=== PATIENT | male | born 1995 | race Caucasian/White ===

== ENCOUNTER 2018-01-08 13:06 | Day surgery (SDC) | payer MEDICAID ==
[2018-01-08 14:30] LABS: BASO # 0.1 K/uL (0.0-0.2); EOS # 0.1 K/uL (0.0-0.7); EOS % 1.4 % (0.0-4.0); HEMOGLOBIN 16.5 g/dL (12.0-18.0); LYMPH # 2.4 K/uL (1.0-4.3); LYMPH % 38.2 % (20.0-40.0); MEAN CELL VOLUME 89.7 fL (80.0-94.0); MEAN CORPUSCULAR HEMOGLOBIN 30.9 pg (27.0-31.0); MEAN CORPUSCULAR HGB CONC 34.4 g/dL (33.0-37.0); MEAN PLATELET VOLUME 7.7 fL (7.2-11.7); MONO # 0.5 K/uL (0.0-0.8); MONO % 7.5 % (0.0-10.0); NEUT # 3.3 K/uL (1.8-7.0); NEUT % 51.9 % (50.0-75.0); NRBC % 0.1 % (0.0-2.0); RBC 5.35 Mil/uL (4.40-5.90); WHITE BLOOD COUNT 6.3 K/uL (4.8-10.8)
[2018-01-08 14:32] LABS: URINE BILIRUBIN NEGATIVE (NEGATIVE); URINE BLOOD NEGATIVE (NEGATIVE); URINE CLARITY Clear (Clear); URINE COLOR Yellow (YELLOW); URINE GLUCOSE (UA) NORMAL (Normal); URINE LEUKOCYTE ESTERASE NEG Leu/uL (Negative); URINE PROTEIN NEGATIVE (NEGATIVE); URINE UROBILINOGEN NORMAL mg/dL (0.2-1.0)
[2018-01-08 14:43] LABS: ALB/GLOB RATIO 1.4 (1.0-2.1); ALBUMIN 4.6 g/dL (3.5-5.0); ALT/SGPT 29 U/L (21-72); AST/SGOT 38 U/L (17-59); BLOOD UREA NITROGEN 13 mg/dL (9-20); CALCIUM 9.8 mg/dl (8.6-10.4); GFR NON-AFRICAN AMERICAN > 60; LIPASE 490 U/L (23-300)
[2018-01-08] MEDS ORDERED: Iodixanol 320 MG/ML 100 ML BOTTLE IV ONE (15:00)
--- NOTE | 2018-01-08 15:23 | C.PDOC ---
History Of Present Illness 22 y/o male presents to the ER complaining of right testicular pain which began when he woke up in the morning today. Patient states that he was not sexually active last night or in the morning. Patient denies having history of testicular trauma and STDs. Time Seen by Provider: 01/08/18 13:43 Chief Complaint (Nursing): Male Genitourinary History Per: Patient History/Exam Limitations: no limitations Onset/Duration Of Symptoms: Hrs Current Symptoms Are (Timing): Still Present Severity: Moderate Past Medical History Reviewed: Historical Data, Nursing Documentation, Vital Signs Vital Signs: Last Vital Signs Temp 99 F 01/08/18 13:27 Pulse 65 01/08/18 13:27 Resp 18 01/08/18 13:27 BP 116/77 01/08/18 13:27 Pulse Ox 97 01/08/18 13:27 - Medical History PMH: No Chronic Diseases Other Surgeries: Hx of surgeries Family History: States: No Known Family Hx - Social History Hx Alcohol Use: No Hx Substance Use: No - Immunization History Hx Tetanus Toxoid Vaccination: No Hx Influenza Vaccination: No Hx Pneumococcal Vaccination: No Review Of Systems Except As Marked, All Systems Reviewed And Found Negative. Constitutional: Negative for: Fever, Chills Genitourinary: Positive for: Other (right testicular pain) Physical Exam - Physical Exam Appears: No Acute Distress Skin: Normal Color, Warm, Dry Head: Atraumatic, Normacephalic Eye(s): bilateral: Normal Inspection Nose: Normal Oral Mucosa: Moist Neck: Supple Chest: Symmetrical Cardiovascular: Rhythm Regular Respiratory: Normal Breath Sounds, No Rales, No Rhonchi, No Wheezing Gastrointestinal/Abdominal: Normal Exam, Soft, No Tenderness, No Guarding, No Rebound Male Genital: Other (right testicle: elevated, ? rotated, tender to palpation, no scrotal inflammation, no hernia) Neurological/Psych: Oriented x3, Normal Speech ED Course And Treatment - Laboratory Results Result Diagrams: 01/08/18 14:25 01/08/18 14:25 Lab Interpretation: Abnormal (lipase 490 of ? etiology, UA neg., GC/Chlamydia screen sent (f/u)) O2 Sat by Pulse Oximetry: 97 (RA) Pulse Ox Interpretation: Normal - Other Rad Scrotal US X-Ray: Read By Radiologist (+ R testicular torsion with decrease flow to R testicle) - CT Scan/US CT Abd Pelvis Other Rad Studies (CT/US): Radiology Report Reviewed (fatty liver infiltration, no pancreatitis, + constipation) Reevaluation Time: 15:22 Reassessment Condition: Improved - Physician Consult Information Outcome Of Conversation: 1500: US tech called to notify of R testicular torsion. 1510: d/w Dr. Dewey- Urology Cooking Instructor- will come to immediatly, asks to alert surgical team and admit to Hospitalists, planning for same-day d/c. Medical Decision Making Medical Decision Making: sponteneous R testicular torsion lipase 490 of ? significance CT Abd/pelvis pending. Disposition Doctor Will See Patient In The: Hospital - Disposition Disposition: HOSPITALIZED Disposition Time: 15:24 Condition: GOOD - Clinical Impression Clinical Impression: Right testicular torsion - Scribe Statement The provider has reviewed the documentation as recorded by the Scribe Abelino Giles Provider Attestation: All medical record entries made by the Scribe were at my direction and personally dictated by me. I have reviewed the chart and agree that the record accurately reflects my personal performance of the history, physical exam, medical decision making, and the department course for this patient. I have also personally directed, reviewed, and agree with the discharge instructions and disposition.
--- NOTE | 2018-01-08 15:33 | US ---
Date of service: 01/08/2018 HISTORY: 1 day R testicle abn ? rotate vs epididimitis TECHNIQUE: Realtime sonography through the scrotum with color and doppler flow. COMPARISON: None Available. FINDINGS: RIGHT TESTICLE: Measures 5.3 x 3.1 x 2.9 cm. No Doppler flow seen within the right testicle suggesting torsion. The the radiology is. RIGHT EPIDIDYMIS: Epididymal head measures 2.5 x 2.0 x 2.1 cm. No obvious Doppler flow is present. LEFT TESTICLE: Measures 5.1 x 2.0 x 2.6 cm. Normal echotexture and flow. LEFT EPIDIDYMIS: Epididymal head measures 1.1 x 0.9 x 1.3 cm. Grossly unremarkable appearance with normal flow. HYDROCELE: Right-sided hydrocele VARICOCELE: None. OTHER FINDINGS: None. IMPRESSION: Findings consistent with torsion right testicle.. No Doppler flow seen within the right epididymis. There is a right-sided hydrocele. Findings discussed with Dr. León at 3:30 p.m. with written down and read back verification.
--- NOTE | 2018-01-08 15:44 | CT ---
Date of service: 01/08/2018 PROCEDURE: CT Abdomen and Pelvis with contrast HISTORY: incidental elev lipase, R testicular mass, ? mets COMPARISON: None. TECHNIQUE: Contrast dose: 100 cc Visipaque 320 Radiation dose: Total exam DLP = mGy-cm. This CT exam was performed using one or more of the following dose reduction techniques: Automated exposure control, adjustment of the mA and/or kV according to patient size, and/or use of iterative reconstruction technique. FINDINGS: LOWER THORAX: Heart size within range of normal. No significant pericardial effusion. Tiny hiatal hernia. No infiltrate effusion or basilar pneumothorax. LIVER: Liver is borderline enlarged measuring nearly 19 cm in CC dimension. Moderate fatty hepatic infiltration.. No obvious hepatic mass or collection.. Portal and splenic veins are opacified. GALLBLADDER AND BILE DUCTS: Unremarkable. PANCREAS: The pancreas is poorly delineated on this exam due to a paucity of retroperitoneal and intraperitoneal fat as well as a decompressed on collapsed of bowel.. SPLEEN: Spleen exhibits normal size. No obvious splenic mass collection or calcification. ADRENALS: No adrenal lesions are identified. KIDNEYS AND URETERS: Kidneys demonstrate symmetric nephrograms. No evidence of nephrolithiasis or hydronephrosis. VASCULATURE: Unremarkable. No aortic aneurysm. BOWEL: Evaluation of the bowel is limited due to the lack of oral contrast material. Stomach is incompletely distended which in part accounts for thick-walled appearance. Rule out gastritis. Visualized loops of small bowel exhibit normal contour and caliber. No evidence of acute mechanical small bowel obstruction. Moderate amount of stool seen throughout the large bowel consistent with fecal retention/constipation. APPENDIX: Appendix not seen with certainty. Omi as above PERITONEUM: Unremarkable. No free fluid. No free air. LYMPH NODES: Unremarkable. No enlarged lymph nodes. BLADDER: Bladder is distended. No intraluminal calculi. REPRODUCTIVE: Apparent right-sided hydrocele. Please refer to concurrent testicular ultrasound for additional details BONES: Acute fractures. No suspicious lytic or blastic lesions seen. There are several small chronic appearing Schmorl's nodes scattered throughout the lower thoracic and lumbar spine. OTHER FINDINGS: None. IMPRESSION: Limited study demonstrating no definitive acute intra-abdominal pathology. Right-sided testicular hydrocele felt to be present however please refer to concurrent testicular ultrasound and corresponding report for additional details. Findings consistent with constipation. Fatty hepatic infiltration.
[2018-01-08] MEDS ORDERED: Bupivacaine HCl 0.5% PF (30 ml) Inj IJ ONE (16:39)
[2018-01-08] MEDS ORDERED: Propofol 10 mg/ml Inj (20 ML) ONE (16:44)
[2018-01-08] MEDS ORDERED: Midazolam 2 MG/2 ML VIAL ONE (16:44)
[2018-01-08] MEDS ORDERED: ceFAZolin IV 1 gm in Dextrose 1 GM/50 ML BAG IVPB ONE (16:57)
[2018-01-08] MEDS ORDERED: Bacitracin Ointment 30 GM TUBE ONE (17:26)
--- NOTE | 2018-01-08 17:36 | PCM.SURG1 ---
Surgeon's Initial Post Op Note - Surgeon's Notes Surgeon: Zuleima Leather Sorter: Nithya Type of Anesthesia: General LMA Anesthesia Administered By: staff Pre-Operative Diagnosis: Right testicular torsion Operative Findings: same Post-Operative Diagnosis: same Operation Performed: Scrotal exploration/ Right orchiopexy Specimen/Specimens Removed: na Estimated Blood Loss: EBL {In ML}: 0 Blood Products Given: N/A Drains Used: No Drains Post-Op Condition: Good Date of Surgery/Procedure: 01/08/18 Time of Surgery/Procedure: 17:36
[2018-01-08] MEDS ORDERED: HYDROmorphone 0.5 mg/0.5 ml ISec IVP PRN (17:43)
[2018-01-08 18:40] VITALS: O2SAT 100
--- NOTE | 2018-01-08 19:03 | CP.PCM.HP ---
History of Present Illness - History of Present Illness History of Present Illness: CC: scrotal/ right testicular pain HPI: Patient is a 22 y/o M with no significant PMHx who presents to the ER with right testicular and scrotal pain that started upon awakening this morning. Patient said he had no trauma to the area. Patient said the area look swollen to him and the pain was worsening so he came to the ER. Patient seen after surgery with Dr. Dewey. Patient resting in bed comfortably. Patient has no complaints. 12 point ROS reviewed with patient with only positive being the testicular pain. PMD: Edwin Gutierrez Allergies: NKDA PMHx: denies Psurg: surgery for broken elbow in 2007, no metal Famhx: Dad: 59 y/o, cardiac stent placed at age 57; mom: healthy Social: smokes 1ppd for 5 years, alcohol- once every 4-5 months (special occasions), smokes marijuana on weekends (2 joints every Wednesday and Wednesday) Present on Admission - Present on Admission Any Indicators Present on Admission: No History of DVT/PE: No History of Uncontrolled Diabetes: No Urinary Catheter: No Decubitus Ulcer Present: No Review of Systems - Constitutional Constitutional: absent: Chills, Fever - Cardiovascular Cardiovascular: absent: Chest Pain, Dyspnea - Respiratory Respiratory: absent: Cough - Gastrointestinal Gastrointestinal: absent: Abdominal Pain, Constipation, Diarrhea, Nausea, Vomiting - Reproductive: Male Reproductive:Male: Other (right testicular pain ) - Neurological Neurological: absent: Weakness - Hematologic/Lymphatic Hematologic: absent: Easy Bleeding, Easy Bruising Past Patient History - Infectious Disease Hx of Infectious Diseases: None - Past Social History Smoking Status: Never Smoked - PSYCHIATRIC Hx Substance Use: No - SURGICAL HISTORY Hx Surgeries: Yes Other/Comment: "elbow surgery" Meds Allergies/Adverse Reactions: Allergies Allergy/AdvReac Type Severity Reaction Status Date / Time No Known Allergies Allergy Unverified 01/08/18 13:26 Physical Exam - Constitutional Appears: Non-toxic, No Acute Distress - Head Exam Head Exam: ATRAUMATIC, NORMAL INSPECTION, NORMOCEPHALIC - Eye Exam Eye Exam: EOMI, Normal appearance - ENT Exam ENT Exam: Mucous Membranes Moist - Respiratory Exam Respiratory Exam: Clear to Auscultation Bilateral, NORMAL BREATHING PATTERN. absent: Rales, Rhonchi, Wheezes - Cardiovascular Exam Cardiovascular Exam: REGULAR RHYTHM, RRR, +S1, +S2 - GI/Abdominal Exam GI & Abdominal Exam: Normal Bowel Sounds, Soft. absent: Tenderness - Exam Additional comments: groin pouch with sling supporting scrotum - Extremities Exam Extremities exam: Positive for: normal inspection. Negative for: tenderness - Neurological Exam Neurological exam: Alert, Oriented x3 - Psychiatric Exam Psychiatric exam: Normal Affect, Normal Mood - Skin Skin Exam: Intact, Normal Color, Warm Results - Vital Signs Recent Vital Signs: Last Vital Signs Temp 98 F 01/08/18 17:42 Pulse 74 01/08/18 18:27 Resp 17 01/08/18 18:27 BP 114/76 01/08/18 18:27 Pulse Ox 100 01/08/18 18:27 - Labs Result Diagrams: 01/08/18 14:25 01/08/18 14:25 Labs: Laboratory Results - last 24 hr 01/08/18 01/08/18 01/08/18 14:25 14:25 14:25 WBC 6.3 RBC 5.35 Hgb 16.5 Hct 48.0 MCV 89.7 MCH 30.9 MCHC 34.4 RDW 14.0 Plt Count 251 MPV 7.7 Neut % (Auto) 51.9 Lymph % (Auto) 38.2 [place] % (Auto) 7.5 Eos % (Auto) 1.4 Baso % (Auto) 1.0 Neut # (Auto) 3.3 Lymph # (Auto) 2.4 [place] # (Auto) 0.5 Eos # (Auto) 0.1 Baso # (Auto) 0.1 Sodium 142 Potassium 4.8 Chloride 102 Carbon Dioxide 30 Anion Gap 15 BUN 13 Creatinine 0.9 Est GFR ( Amer) > 60 Est GFR (Non-Af Amer) > 60 Random Glucose 99 Calcium 9.8 Total Bilirubin 0.5 AST 38 ALT 29 Alkaline Phosphatase 73 Total Protein 7.8 Albumin 4.6 Globulin 3.3 Albumin/Globulin Ratio 1.4 Lipase 490 H Urine Color Yellow Urine Clarity Clear Urine pH 6.0 Ur Specific [place] 1.019 Urine Protein Negative Urine Glucose (UA) Normal Urine Ketones Negative Urine Blood Negative Urine Nitrate Negative Urine Bilirubin Negative Urine Urobilinogen Normal Ur Leukocyte Esterase Neg Urine WBC (Auto) < 1 Assessment & Plan - Assessment and Plan (Free Text) Assessment: Right Testicular Torsion s/p right orchiopexy POD#[address] Dewey patient stable for discharge as per Dr. Dewey Tobacco Use Disorder patient counselled on smoking cessation Marijuana Use Disorder patient counselled on marijuana cessation Discussed with Dr. Herr
[2018-01-08 19:11] VITALS: BP 116/67; PULSE 70; RESP 12; TEMP 97.5
--- NOTE | 2018-01-08 19:18 | CP.PCM.DIS ---
Provider - Provider Attending physician: Inocencia Herr DO Consults: Urology : Dr. Dewey Time Spent in preparation of Discharge (in minutes): 15 Diagnosis - Discharge Diagnosis (1) Right testicular torsion Status: Resolved (2) Tobacco dependence due to cigarettes Status: Chronic (3) Marijuana abuse Status: Chronic Hospital Course - Lab Results Lab Results: Most Recent Lab Values WBC 6.3 K/uL (4.8-10.8) 01/08/18 14:25 RBC 5.35 Mil/uL (4.40-5.90) 01/08/18 14:25 Hgb 16.5 g/dL (12.0-18.0) 01/08/18 14:25 Hct 48.0 % (35.0-51.0) 01/08/18 14:25 MCV 89.7 fL (80.0-94.0) 01/08/18 14:25 MCH 30.9 pg (27.0-31.0) 01/08/18 14:25 MCHC 34.4 g/dL (33.0-37.0) 01/08/18 14:25 RDW 14.0 % (11.5-14.5) 01/08/18 14:25 Plt Count 251 K/uL (130-400) 01/08/18 14:25 MPV 7.7 fL (7.2-11.7) 01/08/18 14:25 Neut % (Auto) 51.9 % (50.0-75.0) 01/08/18 14:25 Lymph % (Auto) 38.2 % (20.0-40.0) 01/08/18 14:25 [place] % (Auto) 7.5 % (0.0-10.0) 01/08/18 14:25 Eos % (Auto) 1.4 % (0.0-4.0) 01/08/18 14:25 Baso % (Auto) 1.0 % (0.0-2.0) 01/08/18 14:25 Neut # (Auto) 3.3 K/uL (1.8-7.0) 01/08/18 14:25 Lymph # (Auto) 2.4 K/uL (1.0-4.3) 01/08/18 14:25 [place] # (Auto) 0.5 K/uL (0.0-0.8) 01/08/18 14:25 Eos # (Auto) 0.1 K/uL (0.0-0.7) 01/08/18 14:25 Baso # (Auto) 0.1 K/uL (0.0-0.2) 01/08/18 14:25 Sodium 142 mmol/L (132-148) 01/08/18 14:25 Potassium 4.8 mmol/L (3.6-5.2) 01/08/18 14:25 Chloride 102 mmol/L (98-107) 01/08/18 14:25 Carbon Dioxide 30 mmol/L (22-30) 01/08/18 14:25 Anion Gap 15 (10-20) 01/08/18 14:25 BUN 13 mg/dL (9-20) 01/08/18 14:25 Creatinine 0.9 mg/dL (0.8-1.5) 01/08/18 14:25 Est GFR ( Amer) > 60 01/08/18 14:25 Est GFR (Non-Af Amer) > 60 01/08/18 14:25 Random Glucose 99 mg/dL (75-110) 01/08/18 14:25 Calcium 9.8 mg/dl (8.6-10.4) 01/08/18 14:25 Total Bilirubin 0.5 mg/dL (0.2-1.3) 01/08/18 14:25 AST 38 U/L (17-59) 01/08/18 14:25 ALT 29 U/L (21-72) 01/08/18 14:25 Alkaline Phosphatase 73 U/L (38-126) 01/08/18 14:25 Total Protein 7.8 g/dL (6.3-8.3) 01/08/18 14:25 Albumin 4.6 g/dL (3.5-5.0) 01/08/18 14:25 Globulin 3.3 gm/dL (2.2-3.9) 01/08/18 14:25 Albumin/Globulin Ratio 1.4 (1.0-2.1) 01/08/18 14:25 Lipase 490 U/L (23-300) H 01/08/18 14:25 Urine Color Yellow (YELLOW) 01/08/18 14:25 Urine Clarity Clear (Clear) 01/08/18 14:25 Urine pH 6.0 (5.0-8.0) 01/08/18 14:25 Ur Specific [place] 1.019 (1.003-1.030) 01/08/18 14:25 Urine Protein Negative mg/dL (NEGATIVE) 01/08/18 14:25 Urine Glucose (UA) Normal mg/dL (Normal) 01/08/18 14:25 Urine Ketones Negative mg/dL (NEGATIVE) 01/08/18 14:25 Urine Blood Negative (NEGATIVE) 01/08/18 14:25 Urine Nitrate Negative (NEGATIVE) 01/08/18 14:25 Urine Bilirubin Negative (NEGATIVE) 01/08/18 14:25 Urine Urobilinogen Normal mg/dL (0.2-1.0) 01/08/18 14:25 Ur Leukocyte Esterase Neg [place]/uL (Negative) 01/08/18 14:25 Urine WBC (Auto) < 1 /hpf (0-5) 01/08/18 14:25 - Hospital Course Hospital Course: HPI: Patient is a 22 y/o M with no significant PMHx who presents to the ER with right testicular and scrotal pain that started upon awakening this morning. Patient said he had no trauma to the area. Patient said the area look swollen to him and the pain was worsening so he came to the ER. Patient seen after surgery with Dr. Dewey. Patient resting in bed comfortably. Patient has no complaints. 12 point ROS reviewed with patient with only positive being the testicular pain. Patient taken to OR with Dr. Dewey (urologist) for emergency surgery for testicular torsion. Right orchiopexy/scrotal exploration performed with no com plications. Patient has groin pouch with sling supporting scrotum. Patient counselled on smoking tobacco and marijuana cessation. As per Dr. Dewey patient stable for discharge. Patient to follow up with Dr. Dewey on Wednesday. Please see HPI for full details. Discharge Exam - Additional Findings Additional findings: - Constitutional Appears: Non-toxic, No Acute Distress - Head Exam Head Exam: ATRAUMATIC, NORMAL INSPECTION, NORMOCEPHALIC - Eye Exam Eye Exam: EOMI, Normal appearance - ENT Exam ENT Exam: Mucous Membranes Moist - Respiratory Exam Respiratory Exam: Clear to Auscultation Bilateral, NORMAL BREATHING PATTERN. absent: Rales, Rhonchi, Wheezes - Cardiovascular Exam Cardiovascular Exam: REGULAR RHYTHM, RRR, +S1, +S2 - GI/Abdominal Exam GI & Abdominal Exam: Normal Bowel Sounds, Soft. absent: Tenderness - Exam Additional comments: groin pouch with sling supporting scrotum - Extremities Exam Extremities exam: Positive for: normal inspection. Negative for: tenderness - Neurological Exam Neurological exam: Alert, Oriented x3 - Psychiatric Exam Psychiatric exam: Normal Affect, Normal Mood - Skin Skin Exam: Intact, Normal Color, Warm Discharge Plan - Follow Up Plan Condition: GOOD Disposition: HOME/ ROUTINE
--- NOTE | 2018-01-09 04:07 | OP ---
PROCEDURE DATE: 01/08/2018 PREOPERATIVE DIAGNOSIS: Right testicular torsion. POSTOPERATIVE DIAGNOSIS: Right testicular torsion. PROCEDURES: Scrotal exploration and orchiopexy. FINDINGS: Retorted testicle, retorted to 180 degrees, counter clockwise, which pinked up on warming and detorsion. DESCRIPTION OF PROCEDURE: Prior to the procedure, a detailed informed consent was obtained from the patient. He was explained of all risks and complications of this procedure and altered methods of treating testicular torsion. He is aware of the possibility that testicle may already be and he is aware of the complication of infertility, impotence, and decreased testosterone. He was brought into the room. A time-out was taken according to the rules and regulations of [facility] and after the patient was anesthetized, he was explored through a median raphe incision. The incision was carried down through the subcutaneous tissue until the right hemiscrotum was entered. The testicle was then exteriorized, was noted to be torted to approximately 270 degrees in the counter clockwise position. It was detorted and there was warmth, but testicle. To pink up, a small incision was made in the tunica, and the entry into the testicle was visualized. The seminiferous tubules appeared viable. The incision was closed with 2-0 chromic suture. The testicle was placed back in the scrotum in the proper position and it was packed on both the median and the lateral side with 2-0 chromic suture. The patient tolerated this very well. The scrotum was then closed with 2-0 chromic suture in a discontinuous fashion. A 0.5% Marcaine was injected subcutaneously into the skin for postoperative anesthesia. The patient and the family were given detailed postoperative instructions, a prescription for nonsteroidal anti-inflammatories and followup appointment in our office next week. Carlos Dewey MD
--- NOTE | 2018-01-10 07:19 | CON ---
DATE: 01/08/2018 TIME: Approximately 3:30 p.m. REASON FOR CONSULTATION: Right testicular pain. HISTORY OF PRESENT ILLNESS: The patient presented to the emergency room today, he woke up this morning at 10:30 with severe right testicular pain. He later presented to the emergency room, where he underwent examination and a testicular scan, which showed a right testicular torsion. He denies any history of previous scrotal pain. No history of dysuria or frequency. REVIEW OF SYSTEMS: RESPIRATORY: Negative. GASTROINTESTINAL: Negative. MUSCULOSKELETAL: Negative. VASCULAR: Negative. NEUROLOGICAL: Negative. INTEGUMENT: Negative. GENITOURINARY: The patient has no history of illness prior to this episode. PHYSICAL EXAMINATION: VITAL SIGNS: Within normal limits. GENERAL: The patient is awake, alert and oriented x3. HEAD, EARS, EYES, NOSE AND THROAT: Within normal limits. NECK: Supple. There are no bruits, nodes, or masses. CHEST: Clear bilaterally. There are no rales or rhonchi. HEART: Normal sinus rhythm. ABDOMEN: Soft and nontender. There is no palpable bladder distention. There is an umbilical hernia. GENITALIA: The patient is circumcised. Meatus is adequate. Left testicle is normal in size and orientation. The right testicle is high riding and extremely tender consistent with torsion. ASSESSMENT AND PLAN: I have reviewed the testicular scan and based on this findings, we have elected to proceed with orchiopexy and scrotal exploration and/or orchiectomy today. The patient was advised, he consent for the procedure. He is aware of the risk and complications of the procedure. Translation was provided by his relatives. The patient understands all the complications and need for close follow up after the procedure. Carlos Dewey MD
== END 2018-01-08 19:05 | disposition home or self-care (01) ==
LOC: C.ER 13:06 → C.SDS 15:24
PROVIDERS: ATTEND Hospitalist
DX: N44.00 Torsion of testis, unspecified (principal); N43.3 Hydrocele, unspecified; F12.10 Cannabis abuse, uncomplicated; F17.210 Nicotine dependence, cigarettes, uncomplicated
CPT/HCPCS: 54640; 74177; 76870; 80053; 81001; 83690; 85025; 87491; 87591; 99285; J0690; J2250; J2704; J3010; Q9967

== ENCOUNTER 2018-01-18 15:08 | Emergency (ER) | payer MEDICAID ==
[2018-01-18 15:19] VITALS: BP 105/62; PULSE 68; RESP 18; TEMP 98.3; O2SAT 97
--- NOTE | 2018-01-18 16:30 | C.PDOC ---
History Of Present Illness CO SCROTAL WOUND DEHISC THIS MORNING. S/P 01/08 Right orchiopexy/scrotal exploration, SUTURE REMOVAL IN OFFICE LAST WEEK. PS DOING WELL Time Seen by Provider: 01/18/18 16:25 Chief Complaint (Nursing): Abnormal Skin Integrity Past Medical History Reviewed: Historical Data, Nursing Documentation, Vital Signs Vital Signs: Last Vital Signs Temp 98.3 F 01/18/18 15:15 Pulse 68 01/18/18 15:15 Resp 18 01/18/18 15:15 BP 105/62 01/18/18 15:15 Pulse Ox 97 01/18/18 15:15 Family History: States: Unknown Family Hx - Social History Hx Alcohol Use: No Hx Substance Use: No - Immunization History Hx Tetanus Toxoid Vaccination: No Hx Influenza Vaccination: No Hx Pneumococcal Vaccination: No Review Of Systems Except As Marked, All Systems Reviewed And Found Negative. Physical Exam - Physical Exam Appears: Well, Non-toxic Skin: Normal Color, Dry, Other (DEHISC MID SCROTUM NO ACTIVE BLEED, NO INFXN) Head: Atraumatic Eye(s): bilateral: Normal Inspection Neck: Normal, Normal ROM Respiratory: Other (NARD) Male Genital: No Testicular Swelling, No Scrotal Swelling Extremity: Normal ROM Neurological/Psych: Oriented x3, Normal Speech, Normal Cognition, Normal Cranial Nerves, Normal Motor ED Course And Treatment O2 Sat by Pulse Oximetry: 97 - Physician Consult Information Time Consulting Physician Contacted: 16:40 Physician Contacted: Carlos Jimenez Jr. Outcome Of Conversation: AWARE OF ER FINDINGS. WOUND CARE, DRESSING, ABX, FU OFFICE 01/19 Disposition Counseled Patient/Family Regarding: Diagnosis, Need For Followup - Disposition Referrals: [facility] [Outside] [facility] [Outside] Carlos Jimenez Jr., MD [Staff Provider] - Disposition: HOME/ ROUTINE Disposition Time: 16:40 Condition: IMPROVED Additional Instructions: FOLLOW UP DR JIMENEZ OFFICE 01/19. TAKE ANTIBIOTICS PRESCRIBED. Prescriptions: Cephalexin [cephalexin] 500 mg PO BID #14 cap Instructions: Wound Dehiscence (DC) Forms: [employer] (Lithuanian) - Clinical Impression Clinical Impression: Wound dehiscence
== END 2018-01-18 17:13 | disposition home or self-care (01) ==
LOC: C.ER 15:08
DX: T81.31XA Disruption of external operation (surgical) wound, not elsewhere classified, initial encounter (principal); Y83.8 Other surgical procedures as the cause of abnormal reaction of the patient, or of later complication, without mention of misadventure at the time of the procedure

== ENCOUNTER 2018-01-24 13:29 | Day surgery (SDC) | payer SELFPAY ==
[2018-01-20 14:23] VITALS: BMI 19.3
[2018-01-24] MEDS ORDERED: ceFAZolin 1 gm in NS 1 GM/100 ML BAG IVPB ONE (15:07)
[2018-01-24] MEDS ORDERED: Bupivacaine 0.25% 20 ML INJ IJ ONE (15:08)
[2018-01-24] MEDS ORDERED: Propofol 10 mg/ml Inj (20 ML) ONE ×2 (15:12→15:25)
[2018-01-24] MEDS ORDERED: Midazolam 2 MG/2 ML VIAL ONE (15:12)
--- NOTE | 2018-01-24 16:08 | PCM.SURG1 ---
Surgeon's Initial Post Op Note - Surgeon's Notes Surgeon: Zuleima Cowlman: paco Type of Anesthesia: General LMA Anesthesia Administered By: staff Pre-Operative Diagnosis: Scrotal Gangrene\superfical wound dehisence Operative Findings: same Post-Operative Diagnosis: same Operation Performed: Debridment of gangrene/andsecondary closure of wound Specimen/Specimens Removed: gangrenous tissue Estimated Blood Loss: EBL {In ML}: 5 Blood Products Given: N/A Drains Used: No Drains Post-Op Condition: Good Date of Surgery/Procedure: 01/24/18 Time of Surgery/Procedure: 16:08
[2018-01-24] MEDS: HYDROmorphone 0.5 mg/0.5 ml ISec IVP PRN ×2 (16:18→16:32)
[2018-01-24 16:50] VITALS: O2SAT 100
[2018-01-24 17:55] VITALS: BP 115/72; PULSE 78; RESP 18; TEMP 98
--- NOTE | 2018-01-25 14:47 | OP ---
PROCEDURE DATE: 01/24/2018 PREOPERATIVE DIAGNOSIS: Superficial wound dehiscence and limited gangrene of the scrotum. POSTOPERATIVE DIAGNOSIS: . FINDINGS: Superficial wound dehiscence with some necrotic tissue on either side of the wound. PROCEDURE: Debridement of gangrenous tissue and secondary closure of the wound. SURGEON: Carlos Dewey MD DESCRIPTION OF PROCEDURE: The patient was asked to sign a detailed informed consent with the help of a licensed investment sales assistant. The patient said he understood the risks and complications and willing to accept them. He was brought into the room and time-out was taken according to the rules and regulations of [facility]. The patient had been on antibiotics, but he was given additional antibiotics prophylactically prior to the procedure. A culture was taken of the wound. The wound was scrubbed with a scrub brush and all necrotic tissue was debrided on either sides and a secondary closure using interrupted 2-0 Dexon sutures. The patient tolerated this procedure well. The incision was then infiltrated with Marcaine for postoperative anesthesia and the patient was sent to the recovery room in good condition. The patient was given detailed postoperative instructions with the aid of a licensed investment sales assistant and he was told to return to the office on for bandage change. He was advised that he should not return to work. He should notify us if he has any fever or other signs of infection. The patient understood the instructions. Carlos Dewey MD
== END 2018-01-24 17:57 | disposition home or self-care (01) ==
LOC: C.SDS 13:29
PROVIDERS: ATTEND Urology
DX: T81.31XA Disruption of external operation (surgical) wound, not elsewhere classified, initial encounter (principal); N49.3 Fournier gangrene
CPT/HCPCS: 13160; 87070; 97597; J0690; J1170; J1885; J2250; J2704; J3010